=== PATIENT | female | born 1975 | race American Indian/Alaskan Native ===

== ENCOUNTER 2021-04-20 10:48 | Emergency (ER) | payer SELFPAY ==
[2021-04-20 11:39] VITALS: BP 149/93
--- NOTE | 2021-04-20 12:56 | Emergency Department Report ---
ED ENT HPI - General Chief complaint: Dental/Oral Stated complaint: TOOTH ACHE Time Seen by Provider: 04/20/21 12:52 Source: patient Mode of arrival: Ambulatory Limitations: No Limitations - History of Present Illness Initial comments: 45-year-old -[place] female presents to the emergency room complaining of 1-1/2 weeks of dental pain to her right lower jaw. Patient states she is aware that she has a bad tooth. She states that she does not have a dentist but has made an appointment for May 09, 2021. She states been taking Tylenol and BC powders. She denies any past medical history denies taking any meds on a daily basis has no known drug allergies and no trauma. MD complaint: tooth pain Onset/Timin -: week(s) Location: tooth # (29) Severity: severe Severity scale (0 -10): 8 Quality: stabbing, aching, sharp Consistency: constant Improves with: none Worsens with: none Context- Dental: history of dental caries, poor dental care - Related Data Previous Rx's Medication Instructions Recorded Last Taken Type Acetaminophen/Codeine [Tylenol #3] 1 tab PO Q6H PRN #20 tab 01/06/15 Unknown Rx Cyclobenzaprine HCl [Flexeril 5 MG 5 mg PO Q6HR #20 tablet 01/06/15 Unknown Rx TAB] Clindamycin [Clindamycin CAP] 300 mg PO Q8H 10 Days #30 cap 04/20/21 Unknown Rx Naproxen 500 mg PO 20 PRN #20 tablet 04/20/21 Unknown Rx Allergies Allergy/AdvReac Type Severity Reaction Status Date / Time No Known Allergies Allergy Verified 01/06/15 13:10 ED Dental HPI - General Chief complaint: Dental/Oral Stated complaint: TOOTH ACHE Time Seen by Provider: 04/20/21 12:52 Source: patient Mode of arrival: Ambulatory Limitations: No Limitations - Related Data Previous Rx's Medication Instructions Recorded Last Taken Type Acetaminophen/Codeine [Tylenol #3] 1 tab PO Q6H PRN #20 tab 01/06/15 Unknown Rx Cyclobenzaprine HCl [Flexeril 5 MG 5 mg PO Q6HR #20 tablet 01/06/15 Unknown Rx TAB] Clindamycin [Clindamycin CAP] 300 mg PO Q8H 10 Days #30 cap 04/20/21 Unknown Rx Naproxen 500 mg PO 20 PRN #20 tablet 04/20/21 Unknown Rx Allergies Allergy/AdvReac Type Severity Reaction Status Date / Time No Known Allergies Allergy Verified 01/06/15 13:10 ED Review of Systems ROS: Stated complaint: TOOTH ACHE Other details as noted in HPI Comment: All other systems reviewed and negative ED Past Medical Hx - Past Medical History Previous Medical History?: No - Surgical History Past Surgical History?: No Additional Surgical History: c sections. - Social History Smoking Status: Current Every Day Smoker Substance Use Type: Alcohol - Medications Home Medications: Home Medications Medication Instructions Recorded Confirmed Last Taken Type Acetaminophen/Codeine [Tylenol #3] 1 tab PO Q6H PRN #20 tab 01/06/15 Unknown Rx Cyclobenzaprine HCl [Flexeril 5 MG 5 mg PO Q6HR #20 tablet 01/06/15 Unknown Rx TAB] Clindamycin [Clindamycin CAP] 300 mg PO Q8H 10 Days #30 cap 04/20/21 Unknown Rx Naproxen 500 mg PO 20 PRN #20 tablet 04/20/21 Unknown Rx ED Physical Exam - General Limitations: No Limitations General appearance: alert, in no apparent distress - Head Head exam: Present: atraumatic, normocephalic - Eye Eye exam: Present: normal appearance - ENT ENT exam: Present: mucous membranes moist - Expanded ENT Exam Expanded Teeth exam: Present: dental caries, dental tenderness # (28), gingival enlargement - Neck Neck exam: Present: normal inspection, full ROM - Respiratory Respiratory exam: Absent: respiratory distress, accessory muscle use - Cardiovascular Cardiovascular Exam: Present: regular rate. Absent: systolic murmur, diastolic murmur, rubs, gallop - GI/Abdominal GI/Abdominal exam: Present: soft, normal bowel sounds - Extremities Exam Extremities exam: Present: normal inspection - Back Exam Back exam: Present: normal inspection - Neurological Exam Neurological exam: Present: alert, oriented X3 - Psychiatric Psychiatric exam: Present: normal affect, normal mood - Skin Skin exam: Present: warm, dry, intact, normal color. Absent: rash ED Course Vital Signs 04/20/21 11:36 Temperature 98.7 F Pulse Rate 76 Respiratory 16 Rate Blood Pressure 149/93 O2 Sat by Pulse 100 Oximetry Critical care attestation.: If time is entered above; I have spent that time in minutes in the direct care of this critically ill patient, excluding procedure time. ED Disposition Clinical Impression: Dental abscess Disposition: 01 HOME / SELF CARE / HOMELESS Is pt being admited?: No Does the pt Need Aspirin: No Condition: Stable Instructions: Dental Abscess, [id number] Additional Instructions: Complete antibiotics as prescribed pain medication as needed follow-up with a dentist. Be sure to increase your fluids advance your diet as tolerated. Prescriptions: Clindamycin [Clindamycin CAP] 300 mg PO Q8H 10 Days #30 cap Naproxen 500 mg PO 20 PRN #20 tablet PRN Reason: Pain , Severe (7-10) Referrals: [facility] [Outside] - 3-5 Days [facility] [Outside] - 3-5 Days [facility] [Outside] - 3-5 Days Forms: Work/School Release Form(ED) Time of Disposition: 12:55
== END 2021-04-20 13:12 | disposition home or self-care (01) ==
LOC: ED 10:48
DX: K04.7 Periapical abscess without sinus (principal); F17.200 Nicotine dependence, unspecified, uncomplicated
CPT/HCPCS: 99281